=== PATIENT | male | born 1965 | race Two or more races ===

== ENCOUNTER 2019-07-25 18:26 | Emergency (ER) | payer BC ==
[~2019-07-25] VITALS: Ht 160 cm; Wt 72.6 kg
[2019-07-25 18:26] VITALS: BP 103/62
--- NOTE | 2019-07-25 18:30 | NUR ---
ED Nurse Note: Patient brought in by ambulance [id number], bystanders called 911 because patient was found on the ground, s/p ground level fall and was reported that patient has been drinking. oral trauma noted and bleeding is controlled. patient denies LOC, patient is alert awake x3, breathing unlabored and even, speaking in full sentences. patient denies any n/v.
--- NOTE | 2019-07-25 19:17 | NUR ---
ED Nurse Note: patient came back from CT, stable in bed.
--- NOTE | 2019-07-25 19:23 | NUR ---
HAND-OFF: Report given to Florinda NO. patient is resting in bed.
[2019-07-25 20:00] VITALS: BP 119/68
--- NOTE | 2019-07-25 20:00 | Diagnostic Imaging Report ---
CT HEAD AND CT MAXILLOFACIAL WITHOUT CONTRAST INDICATION: Reason For Exam: TRAUMA Technique: Continuous helical CT scanning of the head was performed without intravenous contrast material. Axial and coronal 5 mm sections were generated. Radiation dose was minimized using automated exposure control. CT maxillofacial was performed utilizing automated exposure control without intravenous contrast material. Axial and coronal images were generated. DOSE: Total Dose Length Product - DLP 1304.20 + 713.[address] Dose Index - CTDIvol(s) 60+29.60 mGy. COMPARISON: None available FINDINGS: CT HEAD: There is no acute intracranial hemorrhage, mass effect or cortical edema. The ventricles, cisterns and sulci are normal for age. Visualized mastoid air cells and paranasal sinuses are unremarkable. No displaced calvarial fracture is identified. There is a small scalp hematoma in the right posterior aspect of the vertex. CT MAXILLOFACIAL: No acute fracture is identified. The mandible, midface and nasal bones are intact. The orbits are unremarkable. Paranasal sinuses and mastoid air cells are clear. The nasal septum is midline. Visualized intracranial compartment is unremarkable. Mild bifrontal supraorbital subcutaneous soft tissue swelling may be small contusions. There are degenerative changes of the cervical spine. IMPRESSION: 1. No evidence of acute intracranial hemorrhage, mass effect or cortical edema. 2. Small high right posterior scalp hematoma. 3. No acute maxillofacial fracture or dislocation. These findings are concordant with the [facility] preliminary report. The CT scanner at [facility] [place] is accredited by the [employer] and the scans are performed using protocols designed to limit radiation exposure to as low as reasonably achievable to attain images of sufficient resolution adequate for diagnostic evaluation.
--- NOTE | 2019-07-25 20:03 | Emergency Room Report ---
History of Present Illness General Chief Complaint: Multiple Trauma/Fall Source: Patient, EMS Present Illness HPI 54-year-old male with history of diabetes and hypertension currently controlled brought in by paramedics after falling on his face in the street due to alcohol intoxication. Patient is awake and alert, and gives me his home address and reports that he has already contacted his and daughter to come and pick him up. Patient speaking in full sentences. Does not appear to be dehydrated or intoxicated at this time. Patient does admit to drinking 3 glasses of champagne today and losing his balance involving his face. Patient denies loss of consciousness and dizziness at this time denies nausea vomiting or blurred vision. Multiple abrasions noted on nose and inside his mouth. No signs of fracture or trauma noted. Patient denies any chest pain, abdominal pain, shortness of breath, no other injuries. Reports that he is able to intake oral hydration. Patient is up-to-date with his tetanus shot. Due to patient's presentation, coherence, and only signs of trauma that noted on face, I decided to do facial CT and head CT scan. At this time patient does not need IV hydration as vitals are within normal limits. Allergies: Coded Allergies: No Known Allergies (Unverified , 07/25/19) Patient History Past Medical History: see triage record Past Surgical History: unable to obtain Pertinent Family History: none Immunizations: UTD Reviewed Nursing Documentation: PMH: Agreed; PSxH: Agreed Nursing Documentation-PMH Past Medical History: No History, Except For Review of Systems All Other Systems: negative except mentioned in HPI Physical Exam Vital Signs Date Time Temp Pulse Resp B/P (MAP) Pulse Ox O2 Delivery O2 Flow Rate FiO2 07/25/19 18:21 98.4 104 24 103/62 (76) 98 Room Air Sp02 EP Interpretation: reviewed, normal General Appearance: no apparent distress, alert, GCS 15, non-toxic Head: other - Facial abrasions Eyes: bilateral eye normal inspection, bilateral eye PERRL ENT: hearing grossly normal, normal pharynx, no angioedema, normal voice Neck: full range of motion, supple, thyroid normal, no meningismus, no bony tend, supple/symm/no masses Respiratory: chest non-tender, lungs clear, normal breath sounds, no rhonchi, no respiratory distress, no wheezing, speaking full sentences Cardiovascular #1: regular rate, rhythm, no edema, no murmur, normal capillary refill Gastrointestinal: normal bowel sounds, non tender, soft, non-distended, no guarding, no rebound Genitourinary: no CVA tenderness Musculoskeletal: back normal, gait/station normal, normal range of motion, non- tender, no calf tenderness Neurologic: alert, oriented x3, responsive, motor strength/tone normal, sensory intact, cerebellar normal, speech normal Psychiatric: judgement/insight normal, memory normal, mood/affect normal, no suicidal/homicidal ideation Skin: abrasion - Lower lip, nasal septum, without any septal hematoma noted Lymphatic: no adenopathy Medical Decision Making PA Attestation All diagnoses and treatment plans were reviewed and discussed with my supervising physician Dr. Lucas Diagnostic Impression: Primary Impression: Facial abrasion Additional Impression: Facial contusion ER Course 54-year-old male with history of diabetes and hypertension currently controlled brought in by paramedics after falling on his face in the street due to alcohol intoxication. Patient is awake and alert, and gives me his home address and reports that he has already contacted his and daughter to come and pick him up. Patient speaking in full sentences. Does not appear to be dehydrated or intoxicated at this time. Patient does admit to drinking 3 glasses of champagne today and losing his balance involving his face. Patient denies loss of consciousness and dizziness at this time denies nausea vomiting or blurred vision. Multiple abrasions noted on nose and inside his mouth. No signs of fracture or trauma noted. Patient denies any chest pain, abdominal pain, shortness of breath, no other injuries. Reports that he is able to intake oral hydration. Patient is up-to-date with his tetanus shot. Due to patient's presentation, coherence, and only signs of trauma that noted on face, I decided to do facial CT and head CT scan. At this time patient does not need IV hydration as vitals are within normal limits. Ddx considered but are not limited to: Head trauma, head contusion, facial bone fracture, facial contusion, infected aberration, superficial abrasion noninfected, laceration, cellulitis Vital signs: are WNL, pt. is afebrile H&PE are most consistent with: Facial contusion, noninfected facial abrasions ORders: Head and facial CT scan no contrast, Bactroban, Motrin ED INTERVENTIONS: Wound clean and dress DISCHARGE: At this time pt. is stable for d/c to home. Will provide printed patient care instructions, and any necessary prescriptions. Care plan and follow up instructions have been discussed with the patient prior to discharge. Patient to follow-up with her primary care provider, take medication as directed , avoid drinking alcohol for further prevention of fall or injury. If worsening symptoms return to the emergency room CT/MRI/US Diagnostic Results CT/MRI/US Diagnostic Results #1: Imaging Test Ordered: Head CT no contrast Impression No intracranial hemorrhage, no skull fracture CT/MRI/US Diagnostic Results #2: Imaging Test Ordered: Facial CT no contrast Impression No facial bone fractures, no hemorrhage noted, no septal hematoma noted Last Vital Signs Date Time Temp Pulse Resp B/P (MAP) Pulse Ox O2 Delivery O2 Flow Rate FiO2 07/25/19 18:28 104 24 Room Air 07/25/19 18:26 98.4 103/62 98 Disposition: HOME, SELF-CARE Condition: Stable Scripts Mupirocin (MUPIROCIN) 15 Gm Cream..g. 1 APPLIC TOPIC THREE TIMES A DAY, #15 GM Prov: Ting Booth 07/25/19 Ibuprofen* (MOTRIN*) 600 Mg Tablet 600 MG ORAL Q6H PRN for For Pain, #30 TAB Prov: Ting Booth 07/25/19 Patient Instructions: Abrasion, [id number], Facial or Scalp Contusion, Easy- to-Read Additional Instructions: Take medication as directed, follow-up with your primary care provider, avoid drinking alcohol. If worsening symptoms return to the emergency room. Ting Booth Jul 25, 2019 20:03
[2019-07-25] MEDS ORDERED: MUPIROCIN15 GM TOPIC (20:04)
[2019-07-25] MEDS ORDERED: IBUPROFEN600 MG ORAL (20:04)
[2019-07-25 20:25] VITALS: BP 119/68
--- NOTE | 2019-07-25 20:25 | NUR ---
ER DISCHARGE NOTE: Patient is cleared to be discharged per ERMD, pt is aox4, on room air, with stable vital signs. pt was given dc and prescription instructions, pt was able to verbalize understanding, pt id band removed without complications. pt is able to ambulate with steady gait. pt took all belongings.
== END 2019-07-25 20:25 | disposition home or self-care (01) ==
LOC: EDBD 18:26 → EMR 19:30
DX: S00.81XA Abrasion of other part of head, initial encounter (principal); W18.39XA Other fall on same level, initial encounter; Y92.410 Unspecified street and highway as the place of occurrence of the external cause
CPT/HCPCS: 70450; 70486; 99284